=== PATIENT | female | born 1940 | race Caucasian/White ===

== ENCOUNTER 2017-06-29 11:51 | Inpatient (IN) | payer MEDICARE, OTHER ==
[~2017-06-29] VITALS: Ht 160 cm; Wt 71.2 kg
[2017-06-29] MEDS ORDERED: FURO20 PO (12:06)
[2017-06-29] MEDS ORDERED: ACET1TAB12 PO (12:06)
[2017-06-29] MEDS ORDERED: GABA-529 PO (12:06)
[2017-06-29] MEDS ORDERED: CELE100 PO (12:06)
[2017-06-29] MEDS ORDERED: WARF5 PO (12:06)
[2017-06-29] MEDS ORDERED: OMEP20 PO (12:06)
[2017-06-29] MEDS ORDERED: METF500T4 PO (12:06)
[2017-06-29] MEDS ORDERED: CARV3 PO (12:06)
[2017-06-29] MEDS ORDERED: ATOR40TA28 PO (12:06)
[2017-06-29] MEDS ORDERED: LOSA50TA37 PO (12:06)
[2017-06-29 12:32] LABS: BASOPHILS # (AUTO) 0.03 K/uL (0.00-0.20); BASOPHILS % (AUTO) 0.4 % (0.0-2.0); EOSINOPHILS # (AUTO) 0.43 K/uL (0.00-0.70); EOSINOPHILS % (AUTO) 4.82 % (1.0-6.0); HEMATOCRIT 35.3 % (36-46); HEMOGLOBIN 11.6 g/dL (12.0-16.0); LYMPHOCYTES # (AUTO) 2.4 K/uL (1.0-4.8); LYMPHOCYTES % (AUTO) 26.5 % (22.0-44.0); MEAN CORPUSCULAR HGB CONC 32.9 G/dL (31.0-37.0); MEAN CORPUSCULAR VOLUME 91 fL (80-100); MONOCYTES # (AUTO) 0.8 K/uL (0.1-1.0); MONOCYTES % (AUTO) 8.8 % (2.0-9.0); NEUTROPHILS # (AUTO) 5.3 K/uL (1.8-7.7); NEUTROPHILS % (AUTO) 59.5 % (40.0-70.0); PLATELET COUNT (AUTO) 364 K/uL (150-450); RED BLOOD CELL COUNT(AUTO) 3.87 MIL/uL (4.00-5.20); RED CELL DISTRIBUTION WIDTH 14.4 % (11.5-14.5); WHITE BLOOD COUNT (AUTO) 8.9 K/uL (4.5-11.0)
[2017-06-29 12:45] LABS: CALCIUM, TOTAL 8.8 mg/dL (8.8-10.5); CREATININE 1.31 mg/dL (0.60-1.30); POTASSIUM 4.3 mmol/L (3.5-5.1)
[2017-06-29 12:56] LABS: BILIRUBIN,TOTAL 0.4 mg/dL (0.1-1.0); TOTAL PROTEIN, SERUM 6.9 g/dL (6.4-8.2)
[2017-06-29] MEDS: NITROGLYCERIN 2% (1 GM=INCH) PACKET TP ONE ×2 (13:21→13:31)
[2017-06-29 15:47] LABS: GLUCOSE,POINT OF CARE 81 MG/DL (70-110)
[2017-06-29 17:15] VITALS: BP 137/66
[2017-06-29 19:31] VITALS: BP 151/65
[2017-06-29 23:22] VITALS: BP 136/68
[2017-06-29] MEDS ORDERED: ACETAMINOPHEN/CODEINE 300-30 MG TABLET PO PRN (23:30)
[2017-06-29] MEDS ORDERED: IPRATROPIUM BROMIDE 0.5 MG/2.5 ML NEB SOLUTION NEB PRN ×2 (23:30→23:45)
[2017-06-29] MEDS ORDERED: HYDROCODONE/ACETAMINOPHEN 5-325 MG TABLET PO PRN ×2 (23:30→23:45)
[2017-06-29] MEDS ORDERED: ONDANSETRON HCL 4 MG/2 ML VIAL IVP PRN ×2 (23:30→23:45)
[2017-06-29] MEDS ORDERED: MORPHINE SULFATE 2 MG/ML SYRINGE IVP PRN ×2 (23:30→23:45)
[2017-06-29] MEDS ORDERED: MAGNESIUM HYDROXIDE SUSPENSION 30 ML UDCUP PO PRN ×2 (23:30→23:45)
[2017-06-29] MEDS ORDERED: ZOLPIDEM TARTRATE 10 MG TABLET PO PRN (23:30)
[2017-06-29] MEDS ORDERED: ACETAMINOPHEN 325 MG TABLET PO PRN ×2 (23:30→23:45)
[2017-06-29] MEDS ORDERED: ALBUTEROL SULFATE 2.5 MG/0.5 ML NEB SOLUTION NEB PRN (23:45)
[2017-06-29] MEDS ORDERED: ZOLPIDEM TARTRATE 5 MG TABLET PO PRN (23:45)
[2017-06-29] MEDS ORDERED: INSULIN ASPART 100 UNITS/ML SQ PRN (23:45)
[2017-06-29] MEDS ORDERED: BISACODYL 10 MG RECTAL RECTAL SUPPOSITORY PR PRN (23:45)
[2017-06-29] MEDS ORDERED: DEXTROSE 50%-WATER 25 GM/50 ML SYRINGE IVP PRN (23:45)
[2017-06-30] MEDS: HEPARIN SODIUM,PORCINE 5,000 UNITS/ML VIAL SQ SCH ×3 (00:03→17:13)
[2017-06-30] MEDS: NITROGLYCERIN 2% (1 GM=INCH) PACKET TP SCH ×4 (00:03→17:13)
[2017-06-30 05:14] VITALS: BP 109/63
[2017-06-30 07:23] VITALS: BP 137/69
[2017-06-30 07:28] LABS: GLUCOSE,POINT OF CARE 97 MG/DL (70-110)
[2017-06-30 07:35] LABS: CHOL/HDL RATIO 3.6 (3.9-5.7)
[2017-06-30] MEDS ORDERED: MetFORMIN HCL 500 MG TABLET PO SCH (08:00)
[2017-06-30] MEDS: PANTOPRAZOLE SODIUM 40 MG/VIAL IVP SCH (08:19)
[2017-06-30] MEDS: CELECOXIB 100 MG CAPSULE PO SCH ×2 (08:20→20:34)
[2017-06-30] MEDS: LOSARTAN POTASSIUM 50 MG TABLET PO SCH (08:39)
[2017-06-30] MEDS: DOCUSATE SODIUM 100 MG CAPSULE PO SCH ×2 (08:39→20:34)
[2017-06-30] MEDS: ASPIRIN 81 MG CHEWABLE TABLET PO SCH (08:39)
[2017-06-30] MEDS: GABAPENTIN 100 MG CAPSULE PO SCH ×3 (08:39→20:34)
[2017-06-30] MEDS: ATORVASTATIN CALCIUM 40 MG TABLET PO SCH (08:40)
[2017-06-30] MEDS: FUROSEMIDE 20 MG TABLET PO SCH (08:40)
[2017-06-30] MEDS: CARVEDILOL 3.125 MG TABLET PO SCH ×2 (08:40→20:34)
[2017-06-30] MEDS ORDERED: PANTOPRAZOLE SODIUM 40 MG/VIAL IVP SCH (09:00)
[2017-06-30] MEDS ORDERED: DOCUSATE SODIUM 100 MG CAPSULE PO SCH (09:00)
[2017-06-30 11:07] VITALS: BP 117/55
[2017-06-30 14:58] LABS: GLUCOSE,POINT OF CARE 133 MG/DL (70-110)
[2017-06-30 15:16] VITALS: BP 132/80
[2017-06-30 19:37] VITALS: BP 134/64
[2017-06-30 22:48] LABS: GLUCOSE,POINT OF CARE 113 MG/DL (70-110)
[2017-06-30 22:48] LABS: GLUCOSE,POINT OF CARE 133 MG/DL (70-110)
[2017-06-30 23:48] VITALS: BP 121/60
[2017-07-01] MEDS: NITROGLYCERIN 2% (1 GM=INCH) PACKET TP SCH ×3 (00:27→12:42)
[2017-07-01] MEDS: HEPARIN SODIUM,PORCINE 5,000 UNITS/ML VIAL SQ SCH ×2 (00:27→08:17)
[2017-07-01 04:41] VITALS: BP 123/61
[2017-07-01 07:02] LABS: GLUCOSE,POINT OF CARE 108 MG/DL (70-110)
[2017-07-01 07:44] VITALS: BP 122/61
[2017-07-01] MEDS: LOSARTAN POTASSIUM 50 MG TABLET PO SCH (08:16)
[2017-07-01] MEDS: GABAPENTIN 100 MG CAPSULE PO SCH (08:16)
[2017-07-01] MEDS: ATORVASTATIN CALCIUM 40 MG TABLET PO SCH (08:16)
[2017-07-01] MEDS: ASPIRIN 81 MG CHEWABLE TABLET PO SCH (08:16)
[2017-07-01] MEDS: CARVEDILOL 3.125 MG TABLET PO SCH (08:16)
[2017-07-01] MEDS: DOCUSATE SODIUM 100 MG CAPSULE PO SCH (08:16)
[2017-07-01] MEDS: FUROSEMIDE 20 MG TABLET PO SCH (08:17)
[2017-07-01] MEDS: PANTOPRAZOLE SODIUM 40 MG/VIAL IVP SCH (08:17)
[2017-07-01] MEDS: CELECOXIB 100 MG CAPSULE PO SCH (08:17)
[2017-07-01 11:19] VITALS: BP 115/56
[2017-07-01 14:59] VITALS: BP 96/66
[2017-07-02 03:53] LABS: GLUCOSE,POINT OF CARE 121 MG/DL (70-110)
== END 2017-07-01 16:45 | disposition home or self-care (01) | DRG 206 ==
LOC: EMS 11:51 → 5N 16:23
PROVIDERS: ADMIT Hospitalist; ATTEND Hospitalist
DX: J98.11 Atelectasis (principal); I11.0 Hypertensive heart disease with heart failure; I50.9 Heart failure, unspecified; E11.9 Type 2 diabetes mellitus without complications; R07.9 Chest pain, unspecified; I25.10 Atherosclerotic heart disease of native coronary artery without angina pectoris; E78.5 Hyperlipidemia, unspecified; K21.9 Gastro-esophageal reflux disease without esophagitis; R42 Dizziness and giddiness; Z79.899 Other long term (current) drug therapy; Z79.01 Long term (current) use of anticoagulants; Z79.84 Long term (current) use of oral hypoglycemic drugs; Z88.0 Allergy status to penicillin
CPT/HCPCS: 82962; 93005; 93306; 99285; C9113; J1644